=== PATIENT | female | born 1970 | race Caucasian/White ===

== ENCOUNTER 2018-08-22 21:24 | Emergency (ER) | payer BC ==
[~2018-08-22] VITALS: Ht 170.2 cm; Wt 96.6 kg
[2018-08-22] MEDS ORDERED: AMARYL4 MG PO (21:37)
[2018-08-22] MEDS ORDERED: LIPITOR 20 MG T20 M1 PO (21:37)
[2018-08-22] MEDS ORDERED: METFORMIN HCL500 MG PO (21:37)
[2018-08-22] MEDS ORDERED: IRBESARTAN150 MG PO (21:38)
[2018-08-22 23:07] LABS: HEMATOCRIT 40.3 % (37.0-47.0); HEMOGLOBIN 13.5 gm/dL (12.0-15.0); MCH 27.7 pg (26.0-34.0); MCHC 33.6 g/dL (28.0-37.0); MCV 82.4 fL (80.0-100.0); MPV 9.2 fl. (7.2-11.1); NUCLEATED RBCS 0 /100WBC; PLATELET COUNT* 293 thou/uL (150-400); RBC 4.89 mil/uL (4.20-5.00); RDW-CV 14.2 % (10.5-14.5); WBC 14.5 thou/uL (4.0-11.0)
[2018-08-22 23:20] LABS: ALBUMIN 4.1 g/dL (3.4-5.0); CALCIUM 9.1 mg/dL (8.5-10.1); CREATININE 0.7 mg/dL (0.6-1.3); POTASSIUM 4.2 mmol/L (3.5-5.1); TOTAL BILIRUBIN 0.5 mg/dL (<0.1-1.0); TOTAL PROTEIN 7.5 g/dL (6.4-8.2)
[2018-08-22 23:35] LABS: ABSOLUTE LYMPHOCYTES 0.9 thou/uL (0.8-5.3); ABSOLUTE MONOCYTES 0.4 thou/uL (0.0-1.2); ABSOLUTE NEUTROPHILS 13.2 thou/uL (1.6-8.1)
[2018-08-22 23:36] LABS: PLATELET ESTIMATE ADEQUATE
[2018-08-23 00:53] LABS: URINE BILIRUBIN NEGATIVE (Negative); URINE BLOOD NEGATIVE (Negative); URINE CLARITY CLEAR; URINE COLOR YELLOW; URINE GLUCOSE-RANDOM 3+ (Negative); URINE LEUKOCYTES-REFLEX NEGATIVE (Negative); URINE NITRITE-REFLEX NEGATIVE (Negative); URINE PROTEIN NEGATIVE (Negative); URINE UROBILINOGEN 0.2 E.U./dl (0.2-1.0)
[2018-08-23 00:54] LABS: URINE KETONES 3+ (Negative)
[2018-08-23] MEDS ORDERED: LEVAQUIN 500 M500 MG PO (04:27)
[2018-08-23] MEDS ORDERED: NORCO 7.5-3251 EACH PO (04:27)
[2018-08-23] MEDS ORDERED: FLAGYL500 M1 PO (04:27)
[2018-08-23 04:58] VITALS: BP 143/88
== END 2018-08-23 04:58 | disposition home or self-care (01) ==
LOC: M.ERS 21:24
PROVIDERS: Nurse Practitioner Psychiatric/Mental Health
DX: N83.8 Other noninflammatory disorders of ovary, fallopian tube and broad ligament (principal); E11.65 Type 2 diabetes mellitus with hyperglycemia; D72.829 Elevated white blood cell count, unspecified; R93.5 Abnormal findings on diagnostic imaging of other abdominal regions, including retroperitoneum